=== PATIENT | female | born 1970 | race African-American/Black ===

== ENCOUNTER 2024-12-28 01:47 | Emergency (ER) | payer OTHER ==
[~2024-12-28] VITALS: Ht 152.4 cm; Wt 57.0 kg
[2024-12-28 02:01] VITALS: O2SAT 98
[2024-12-28] MEDS ORDERED: NAPR-1176 MT (04:18)
[2024-12-28 04:36] VITALS: BP 140/92; PULSE 64; RESP 12; TEMP 36.7; O2SAT 100
== END 2024-12-28 04:50 | disposition home or self-care (01) ==
LOC: ER 01:47
DX: S90.32XA Contusion of left foot, initial encounter (principal); W22.8XXA Striking against or struck by other objects, initial encounter; Y93.89 Activity, other specified; Y92.89 Other specified places as the place of occurrence of the external cause; Y99.8 Other external cause status
CPT/HCPCS: 73630; 99283; Z7610